=== PATIENT | female | born 1945 | race Caucasian/White ===

== ENCOUNTER 2017-05-16 18:21 | Inpatient (IN) | payer OTHER ==
[~2017-05-16] VITALS: Ht 160 cm; Wt 72.6 kg
[~2017-05-16 18:21] MED LIST: ARTIFICIAL TEAR15 M2 OPH; ATORVASTATIN CA10 MG PO; BUFFERIN LOW DO81 MG PO; DONEPEZIL HCL10 MG PO; OCUVITE1 TA1 PO; PRAVASTATIN SOD20 MG PO
--- NOTE | 2017-05-16 18:29 | ED AMS/SEIZURE/WEAK/DIZZY ---
History of Present Illness General Chief Complaint: General Adult Stated Complaint: BIBA UNRESPONSIVE, ?STROKE Source: family, old records, EMS Exam Limitations: no limitations Vital Signs & Intake/Output Vital Signs & Intake/Output Vital Signs Date Time Temp Pulse Resp B/P B/P Pulse O2 O2 Flow FiO2 Mean Ox Delivery Rate 05/16 2356 97.7 109 20 120/72 93 Room Air 05/16 2229 99.0 111 20 118/62 95 Room Air 05/16 2046 97.6 107 18 131/87 94 Room Air 05/16 1950 Room Air 05/16 1949 97.8 05/16 1830 140 20 122/84 91 Room Air ED Intake and Output 05/17 0000 05/16 1200 Intake Total Output Total 30 Balance -30 Number 1 Bowel Movements Output, Urine 30 Patient 160 lb Weight Weight Bed scale Measurement Method Allergies Coded Allergies: NO KNOWN ALLERGIES (11/12/11) Reconcile Medications A/C/E/Zinc/Sod Selenate/Copper (Prosight Tablet) (Unknown Strength) TABLET 1 TAB PO BID SUPPLEMENT (Reported) Acetaminophen (8 Hour) 650 MG TABLET.ER 1 TAB PO BID PAIN (Reported) Acetaminophen (Acephen) 650 MG SUPP.RECT 1 SUPP NC Q4H PRN PAIN/TEMP>101 ( Reported) Atropine Sulfate 1 % DROPS 2 DROP SL Q4H PRN RESP. CONGESTION (Reported) Bisacodyl (Dulcolax) 10 MG SUPP.RECT 1 SUP RC DAILY PRN CONSTIPATION ( Reported) Loratadine (Claritin) 10 MG TABLET 1 TAB PO DAILY ALLERGIES (Reported) Lorazepam (Lorazepam Intensol) 2 MG/ML ORAL.CONC 0.25 ML SL Q4H PRN RESTLESSNESS (Reported) Morphine Sulfate 100 MG/5 ML (20 MG/ML) SOLUTION 0.5 MG PO Q2H PRN SOB/ GRIMACING/PAIN (Reported) Na Phos,M-B/Na Phos,Di-Ba (Fleet Enema) 19 GRAM-7 GRAM/118 ML ENEMA 1 E RC DAILY PRN CONSTIPATION (Reported) Polyvinyl Alcohol (Artificial Tears) 1.4 % DROPS 1 DROP OU BID BOTH EYES ( Reported) Sodium Chloride (Saline Mist) 0.65 % SPRAY 1 SPRAY [place] DAILY PRN NOSE ( Reported) Tramadol HCl 50 MG TABLET 25 MG PO QAM PAIN (Reported) Tramadol HCl 50 MG TABLET 1 TAB PO Q6P PRN MODERATE PAIN (Reported) Triage Nurses Notes Reviewed? yes Onset: Abrupt Duration: minute(s): (few) Timing: single episode today Injury Environment: home Severity: severe No Modifying Factors: none Associated Symptoms: right facial droop HPI: 71 year old female with history of alzheimer's dementia and TIA presents to the ER via EMS from shelter for chief complaint of unresponsive episode in a wheelchair after being fed lunch. EMS states that nurses said she had a fixed gaze to the right and that her right hand and leg was stiff and shaking. Her daughter reports that refugio patient is non verbal at baseline and that she is unable to use her right side. She has a chronic small right facial droop. Past History Travel History Traveled to [place] past 21 day No Medical History Any Pertinent Medical History? see below for history Neurological: Alzheimer's disease, dementia Cardiovascular: hypertension Respiratory: ALLERGIES Gastrointestinal: CHOLESTERAL Other Medical Hx: SEASONAL ALLERGIES History of MRSA: No History of VRE: No History of CDIFF: No Pneumonia Vaccine: 09/02/15 Influenza Vaccine: 09/02/15 Surgical History Surgical History: hysterectomy Psychosocial History What is your primary language Citizen Of [place] Family History Hx Contributory? No Review of Systems Review of Systems Constitutional: Reports: see HPI (PER W10, PATIENT NONVERBAL). Physical Exam Physical Exam General Appearance: lethargic, moderate distress, severe distress Head: atraumatic Eyes: Bilateral: PERRL. Neck: normal inspection Respiratory: normal breath sounds, chest non-tender Cardiovascular: tachycardia Peripheral Pulses: 1+ radial (R), 1+ radial (L) Gastrointestinal: soft, non-tender Extremities: CONTRACTED RIGHT ARM/LEG STIFF/SPASTIC Neurologic/Psych: LETHARGIC Skin: intact, normal color Core Measures ACS in differential dx? No CVA/TIA Diagnosis: Yes NIH Stroke Scale: Total 9 Severe Sepsis Present: Yes BC x2: Yes Lactic Acid x2: Yes IV ABX Broad Spectrum: Yes NS/LR Started: Yes Septic Shock Present: No Progress Differential Diagnosis: CVA/stroke, intracranial Hem., intracranial mass/tumor, sepsis, seizure disorder, subarachnoid Hem., UTI/pyelo Plan of Care: Orders Procedure Date/time Status Nothing by Mouth 05/17 B Active Vital Signs 05/16 2242 Active Teach/Educate 05/16 2242 Active Pain Treatment and Response 05/16 2242 Active Nutritional Intake, Monitor 05/16 2242 Active Isolation 05/16 2242 Active Intake & Output 05/16 2242 Active Patient Care Conference 05/16 2242 Active Activity/Ambulation 05/16 2242 Active LACTIC ACID 05/16 2128 Complete Patient Data 05/16 2106 Active ED Holding Orders 05/16 2051 Active Admit to inpatient 05/16 2051 Active Vital Signs 05/16 2051 Active Code Status 05/16 2051 Active BLOOD CULTURE 05/16 2005 Active Intake & Output 05/16 1950 Active CULTURE,URINE 05/16 1926 Active URINALYSIS 05/16 1926 Complete NIH Stroke Scale 05/16 191 Active Straight Cath 05/16 1900 Active FingerStick- Glucose 05/16 1830 Active TROPONIN LEVEL 05/16 182 Complete PARTIAL THROMBOPLASTIN TIME 05/16 1828 Complete PROTHROMBIN TIME 05/16 1828 Complete LACTIC ACID 05/16 1828 Complete COMPREHENSIVE METABOLIC PANEL 05/16 182 Complete CBC WITHOUT DIFFERENTIAL 05/16 182 Complete EKG 05/16 182 Active TYPE & SCREEN (NOT X-MATCH) 05/16 182 Complete Current Medications Sig/Gilberto Start time Last Medication Dose Stop Time Status Admin Levetiracetam 750 MG BID 05/16 2200 CAN (Keppra) Sodium Chloride 100 ML (Normal Saline 0.9%) Laboratory Tests 05/16/170: Lactic Acid 1.3 05/16/171924: Urine Color YEL, Urine Clarity CLDY H, Urine pH 6.0, Ur Specific [place] >= 1.030, Urine Protein 100 H, Urine Ketones NEG, Urine Nitrite NEG, Urine Bilirubin NEG, Urine Urobilinogen 0.2, Ur Leukocyte Esterase LARGE H, Ur Microscopic SEDIMENT EXAMINED, Urine RBC 15-25 H, Urine WBC PACKD H, Ur Epithelial Cells FEW, Urine Bacteria MANY H, Urine Mucus RARE, Urine Hemoglobin MOD H, Urine Glucose NEG 05/16/171910: Anion Gap 16, Estimated GFR > 60, BUN/Creatinine Ratio 13.8, Glucose 128 H, Lactic Acid 4.3 H, Calcium 10.1, Total Bilirubin 0.4, AST 23, ALT 28, Alkaline Phosphatase 80, Troponin I < 0.01, Total Protein 7.4, Albumin 4.2, Globulin 3.2, Albumin/Globulin Ratio 1.3, PT 11.6, INR 1.11, APTT 29, CBC w Diff NO MAN DIFF REQ, RBC 4.54, MCV 92.1, MCH 30.1, RDW 13.5, MPV 8.6, Gran % 64.6, Lymphocytes % 25.7, Monocytes % 7.4, Eosinophils % 1.9, Basophils % 0.4, Absolute Granulocytes 7.5 H, Absolute Lymphocytes 3.0, Absolute Monocytes 0.9 H, Absolute Eosinophils 0.2, Absolute Basophils 0, PUBS MCHC 32.7 L Microbiology 05/16 2130 BLOOD: Blood Culture - RECD 05/16 2041 BLOOD: Blood Culture - RECD 05/16 1925 URINE ROUT: Urine Culture - RECD Diagnostic Imaging: Viewed by Me: CT Scan. Discussed w/RAD: CT Scan. Radiology Impression: PATIENT: JOSHUA BISWAS PRESENT AGE: 71 PATIENT ACCOUNT NO: [id number] : 47 LOCATION: [facility] ORDERING PHYSICIAN: LORENA BLACKWOOD MD SERVICE DATE: 05/16/17 EXAM TYPE: CAT - CT HEAD WO IV CONTRAST EXAMINATION: CT HEAD WITHOUT CONTRAST CLINICAL INFORMATION: Possible seizure. Right-sided arm and leg spasticity. COMPARISON: MRI scan of the brain and CT scan of the head 10/27/2015. TECHNIQUE: Contiguous axial imaging was performed from the skull base to vertex without intravenous administration of contrast. DLP: 689.8 mGy-cm FINDINGS: There is no evidence of acute intracranial hemorrhage or territorial infarction. No abnormal mass effect or midline shift is seen. Mcgovern to white matter differentiation is well preserved. No extra-axial fluid collections are identified. The ventricles and sulci are slightly commensurately prominent consistent with mild diffuse volume loss. This appears similar compared to the prior study. There are patchy areas of low attenuation in the periventricular and subcortical white matter, consistent with sequelae of chronic microvascular ischemic disease. The osseous structures and soft tissues are normal. The mastoid air cells and visualized portions of the paranasal sinuses are well aerated. IMPRESSION: 1. There are no acute bleeds or territorial infarcts. 2. There are changes consistent with mild diffuse volume loss and there are sequelae of chronic microvascular ischemic disease. A small infarct cannot be excluded on the basis of this study. DICTATED BY: REINALDO RAMIREZ MD DATE/TIME DICTATED:05/16/171856 PRODUCTION RECORDER:YO DATE/TIME TRANSCRIBED:05/16/17 / 1856 CONFIDENTIAL, DO NOT COPY WITHOUT APPROPRIATE AUTHORIZATION. <Electronically signed in Other Vendor System> SIGNED BY: REINALDO RAMIREZ MD 05/16/17 401 Initial ED EKG: SINUS TACHYCARDIA Rhythm Strip: sinus tachycardia Departure Departure Time of Disposition: 2008 Disposition: STILL A PATIENT Condition: Stable Clinical Impression Primary Impression: Seizure Referrals: Ebenezer ANDRES MD (PCP/Family) Departure Forms: Customer Survey General Discharge Information Admission Note Spoke With: RADHA SANDHU MD Documentation of Exam: Documentation of any treatments & extenuating circumstances including Concerns Regarding Discharge (functional status, medication knowledge or non-compliance, living conditions, etc.) that warrant an admission rather than observation: [ TELE MONITOR, SEIZURE PRECAUTIONS, IV KEPPRA, SWALLOW EVALUATION, NEURO CONSULT DR GE, EEG, CONSIDER MRI]
--- NOTE | 2017-05-16 18:32 | NUR ---
BIBA FROM SNF FOR MENTAL STATUS CHANGE; PT WAS RETURNING FROM DINNER, LEANED TO SIDE, BASELINE TREMORS INCREASED AND BECAME UNRESPONSIVE WITH GAZE DEVIATED TO RIGHT. HX DEMENTIA, NONVERBAL BASELINE, DNR/DNI
--- NOTE | 2017-05-16 18:33 | NUR ---
PT SEEN BY DR BLACKWOOD ON ARRIVAL, TO CT WITH RN/MD IMMEDIATLY AFTER INITIAL EVAL.
--- NOTE | 2017-05-16 18:35 | NUR ---
PT PUT ON MONITOR. SINUS TACH 125.
--- NOTE | 2017-05-16 19:05 | CT SCAN REPORT ---
EXAMINATION: CT HEAD WITHOUT CONTRAST CLINICAL INFORMATION: Possible seizure. Right-sided arm and leg spasticity. COMPARISON: MRI scan of the brain and CT scan of the head 10/27/2015. TECHNIQUE: Contiguous axial imaging was performed from the skull base to vertex without intravenous administration of contrast. DLP: 689.8 mGy-cm FINDINGS: There is no evidence of acute intracranial hemorrhage or territorial infarction. No abnormal mass effect or midline shift is seen. Mcgovern to white matter differentiation is well preserved. No extra-axial fluid collections are identified. The ventricles and sulci are slightly commensurately prominent consistent with mild diffuse volume loss. This appears similar compared to the prior study. There are patchy areas of low attenuation in the periventricular and subcortical white matter, consistent with sequelae of chronic microvascular ischemic disease. The osseous structures and soft tissues are normal. The mastoid air cells and visualized portions of the paranasal sinuses are well aerated. IMPRESSION: 1. There are no acute bleeds or territorial infarcts. 2. There are changes consistent with mild diffuse volume loss and there are sequelae of chronic microvascular ischemic disease. A small infarct cannot be excluded on the basis of this study.
--- NOTE | 2017-05-16 19:15 | NUR ---
AFTER CT SCAN EKG DONE, AND LABS DRAWN. SECOND IV STARTED IN RIGHT WRIST.
[2017-05-16 19:34] LABS: ABSOLUTE BASOPHIL COUNT 0 /CUMM (0.0-0.2); ABSOLUTE EOSINOPHIL COUNT 0.2 /CUMM (0.0-0.7); ABSOLUTE GRANULOCYTE CT 7.5 /CUMM (1.4-6.5); ABSOLUTE MONOCYTE COUNT 0.9 /CUMM (0.10-0.60); BASOPHIL % 0.4 % (0.0-2.0); EOSINOPHIL % 1.9 % (0-5); GRANULOCYTE % 64.6 % (42.2-75.2); HEMATOCRIT 41.9 % (37-47); MEAN CORPUSCULAR HGB 30.1 PG (27.0-31.0); MEAN CORPUSCULAR HGB CONC 32.7 G/DL (33.0-37.0); MEAN CORPUSCULAR VOLUME 92.1 FL (81.0-99.0); MEAN PLATELET VOLUME 8.6 FL (7.4-10.4); PLATELET COUNT 372 /CUMM (130-400); RBC DISTRIBUTION WIDTH 13.5 % (11.5-14.5); RED BLOOD CELL CT 4.54 /CUMM (4.20-5.40); WHITE BLOOD CELL COUNT 11.7 /CUMM (4.8-10.8)
[2017-05-16 19:42] LABS: PT 11.6 SEC (9.4-12.5); PTT 29 SEC (25-37)
--- NOTE | 2017-05-16 19:43 | NUR ---
PT STRAIGHT CATHED FOR URINE SPECIMEN. URINE CLOUDY.
--- NOTE | 2017-05-16 19:48 | NUR ---
DTR AT BEDSIDE. REPORTS PT BASELINE STATUS IS TOTAL CARE. UNABLE TO STAND. INCONTINENT OF BOWEL AND BLADDER. NON VERBAL. HISTORY OF ALZHEIMERS.
--- NOTE | 2017-05-16 19:49 | NUR ---
SKIN INACT EXCEPT FOR FOR RASH IN PERINEAL AREA.
--- NOTE | 2017-05-16 20:04 | NUR ---
DR BLACKWOOD IN TO GIVEN UPDATE TO DTR. PT BEING ADMITTED FOR SEIZURES VS CVA WITH INCIDENTAL UTI FINDING. WILL ASSESS PT ABLILITY TO SWALLOW MEDS. TO START KEPPRA FOR POSSIBLE SEIZURES.
--- NOTE | 2017-05-16 20:05 | RADIOLOGY REPORT ---
EXAMINATION: XR PORTABLE CHEST CLINICAL INFORMATION: Seizure, evaluate for pneumonia. COMPARISON: 10/28/2015. TECHNIQUE: Portable frontal view of the chest was obtained. FINDINGS: The cardiomediastinal silhouette is unremarkable. Lung volumes are diminished. The lungs and pleural spaces appear clear without evidence of congestion, consolidation, or significant appearing effusion or atelectasis. There is no evidence of pneumothorax or pulmonary edema. Included osseous structures demonstrate a suture stay in the right humeral head suggesting previous rotator cuff repair. IMPRESSION: Low lung volumes, no evidence of an acute intrathoracic process.
--- NOTE | 2017-05-16 20:16 | NUR ---
CRITICAL TEST RESULTS [id number] JOSHUA BISWAS 71 F TESTS AND RESULTS: LACTIC ACID 4.3 Results received and read back by: DAMARIS WINCHESTER Results received date and time: 05/16/172016 The following provider was notified of the results, and read the results back: DR BLACKWOOD Notified date and time: 05/16/17 at 2017
--- NOTE | 2017-05-16 20:16 | NUR ---
DR BLACKWOOD IN TO EVAL SWALLOW. PT LETHARGIC. EYES CLOSED. PT BITING DOWN ON STRAW BUT MAKING NO ATTEMPT TO DRINK. PT TO BE NPO.
[2017-05-16] MEDS ORDERED: ARTIFICIAL TEAR15 M8 OU (20:40)
[2017-05-16] MEDS ORDERED: CLARITIN10 M1 PO (20:40)
[2017-05-16] MEDS ORDERED: 8 HOUR650 MG PO (20:41)
[2017-05-16] MEDS ORDERED: PROSIGHT TABLE1 EACH PO (20:41)
[2017-05-16] MEDS ORDERED: TRAMADOL HCL50 M1 PO ×2 (20:43→20:56)
[2017-05-16] MEDS ORDERED: ACEPHEN650 M1 PR (20:45)
[2017-05-16] MEDS ORDERED: ATROPINE SULFATE2 ML SL (20:49)
[2017-05-16] MEDS ORDERED: DULCOLAX10 M1 RC (20:52)
[2017-05-16] MEDS ORDERED: FLEET ENEMA133 ML RC (20:53)
[2017-05-16] MEDS ORDERED: LORAZEPAM I2 MG/1 ML SL (20:54)
[2017-05-16] MEDS ORDERED: MORPHINE S100 MG/5 M PO (20:55)
[2017-05-16] MEDS ORDERED: SALINE MIST44 ML NAS (20:56)
--- NOTE | 2017-05-16 22:28 | NUR ---
DR RAMIREZ IN TO SEE PT. PT LOGROLLED, RECTAL TEMP CHECKED AND ASA SUPPOSITORY GIVEN. PT REMAINS LETHRGIC, EYES CLOSED. EXTREMITITES TENSE AND PT RESISTING CARE. PT ACTIVELY MOVING LEFT ARM AND LEG. MINIMAL MOVEMENT NOTED OF RIGHT ARM
--- NOTE | 2017-05-16 22:29 | NUR ---
PT TO ROOM 220 BED 1
--- NOTE | 2017-05-16 22:41 | NUR ---
REPORT CALLED TO JUAN RASMUSSEN
--- NOTE | 2017-05-16 23:32 | History & Physical ---
ELDA RANDOLPHCHAPIS 05/16/17 2372: General Information and HPI MD Statement: I have seen and personally examined JOSHUA BISWAS and documented this H&P. The patient is a 71 year old F who presented with a patient stated chief complaint of altered mental status, and Source of Information: W10, nursing staff at skilled nursing Exam Limitations: unable to give history, not alert/orientated History of Present Illness: Ms Biswas is a 71 yr old woman who was known to be in her usual state of health until a few hours prior to the ED admission. She has a past medical history of Alzheimer's dementia (nonverbal at baseline), hypertension, recent CVA (residual left-sided weakness). She lives at [facility], a skilled nursing where she is being taken care of. She was brought to [facility] with a chief concern of ordered mental status, abnormal movement of her upper extremities x few hours ago. As per the nursing staff at the nursing facility, Ms. Paulson was having her dinner at a common lounge room, when she suddenly stopped swallowing food, and had abnormal extremity movements. She was also noted to have abnormal breathing , shallow breathing. After she was taken to her room, she position herself to be leaned on right side. Since the patient was incontinent at baseline, the nursing staff could not ascertain if she lost her bladder control. Other ROS was difficult to assess. As per the CODE STATUS, she was comfort measures only at skilled nursing. The family wanted to continue to treat her only conservatively. Allergies/Medications Allergies: Coded Allergies: NO KNOWN ALLERGIES (11/12/11) Home Med list A/C/E/Zinc/Sod Selenate/Copper (Prosight Tablet) (Unknown Strength) TABLET 1 TAB PO BID SUPPLEMENT (Reported) Acetaminophen (8 Hour) 650 MG TABLET.ER 1 TAB PO BID PAIN (Reported) Acetaminophen (Acephen) 650 MG SUPP.RECT 1 SUPP MA Q4H PRN PAIN/TEMP>101 ( Reported) Atropine Sulfate 1 % DROPS 2 DROP SL Q4H PRN RESP. CONGESTION (Reported) Bisacodyl (Dulcolax) 10 MG SUPP.RECT 1 SUP RC DAILY PRN CONSTIPATION ( Reported) Loratadine (Claritin) 10 MG TABLET 1 TAB PO DAILY ALLERGIES (Reported) Lorazepam (Lorazepam Intensol) 2 MG/ML ORAL.CONC 0.25 ML SL Q4H PRN RESTLESSNESS (Reported) Morphine Sulfate 100 MG/5 ML (20 MG/ML) SOLUTION 0.5 MG PO Q2H PRN SOB/ GRIMACING/PAIN (Reported) Na Phos,M-B/Na Phos,Di-Ba (Fleet Enema) 19 GRAM-7 GRAM/118 ML ENEMA 1 E RC DAILY PRN CONSTIPATION (Reported) Polyvinyl Alcohol (Artificial Tears) 1.4 % DROPS 1 DROP OU BID BOTH EYES ( Reported) Sodium Chloride (Saline Mist) 0.65 % SPRAY 1 SPRAY AZALEA DAILY PRN NOSE ( Reported) Tramadol HCl 50 MG TABLET 25 MG PO QAM PAIN (Reported) Tramadol HCl 50 MG TABLET 1 TAB PO Q6P PRN MODERATE PAIN (Reported) Compliance With Home Meds: GOOD Past History Travel History Traveled to [place] past 21 day No Medical History Neurological: Alzheimer's disease, dementia, TIA Cardiovascular: hypertension, HLD Respiratory: ALLERGIES Gastrointestinal: CHOLESTERAL Musculoskeletal: OSTEOARTHRITIS Other Medical Hx: SEASONAL ALLERGIES History of MRSA: No History of VRE: No History of CDIFF: No Pneumonia Vaccine: 09/02/15 Influenza Vaccine: 09/02/15 Surgical History Surgical History: hysterectomy Past Family/Social History Family History Relations & Conditions if any Relation not specified for: *No pertinent family history Functional Ability ADLs Independent: eating, toileting. Ambulation: non-ambulatory Review of Systems Review of Systems Constitutional: Reports: see HPI. Denies: chills, fever. Cardiovascular: Denies: chest pain. Respiratory: Denies: cough, short of breath. GI: Denies: diarrhea, vomiting. Skin: Denies: change in skin color. Exam & Diagnostic Data Last 24 Hrs of Vital Signs/I&O Vital Signs Date Time Temp Pulse Resp B/P B/P Pulse O2 O2 Flow FiO2 Mean Ox Delivery Rate 05/16 2356 97.7 109 20 120/72 93 Room Air 05/169 99.0 111 20 118/62 95 Room Air 05/16 2046 97.6 107 18 131/87 94 Room Air 05/16 1950 Room Air 05/16 194 97.8 05/16 1830 140 20 122/84 91 Room Air Intake & Output 05/17 0800 05/17 0000 05/16 1600 Intake Total Output Total 30 Balance -30 Number 1 Bowel Movements Output, Urine 30 Patient 160 lb Weight Weight Bed scale Measurement Method Physical Exam General Appearance No Acute Distress Skin No Rashes Skin Temp/Moisture Exam: Warm/Dry Sepsis Skin Exam (color): Normal for Ethnicity HEENT dry mucous membranes Neck Supple, No JVD Lymphatic Cervical nl Cardiovascular Regular Rate, Normal S1, Normal S2, tachycardia Lungs Clear to Auscultation Abdomen Normal Bowel Sounds, Soft Neurological Reflexes 2+, increased tone bilaterally, strength couldnt be checked Extremities No Clubbing, No Cyanosis, No Edema, Normal Pulses Vascular Pulses Symmetrical Last 24 Hrs of Labs/Chad: Laboratory Tests 05/16/172129: Lactic Acid 1.3 05/16/171924: Urine Color YEL, Urine Clarity CLDY H, Urine pH 6.0, Ur Specific [place] >= 1.030, Urine Protein 100 H, Urine Ketones NEG, Urine Nitrite NEG, Urine Bilirubin NEG, Urine Urobilinogen 0.2, Ur Leukocyte Esterase LARGE H, Ur Microscopic SEDIMENT EXAMINED, Urine RBC 15-25 H, Urine WBC PACKD H, Ur Epithelial Cells FEW, Urine Bacteria MANY H, Urine Mucus RARE, Urine Hemoglobin MOD H, Urine Glucose NEG 05/16/171910: Anion Gap 16, Estimated GFR > 60, BUN/Creatinine Ratio 13.8, Glucose 128 H, Lactic Acid 4.3 H, Calcium 10.1, Total Bilirubin 0.4, AST 23, ALT 28, Alkaline Phosphatase 80, Troponin I < 0.01, Total Protein 7.4, Albumin 4.2, Globulin 3.2, Albumin/Globulin Ratio 1.3, PT 11.6, INR 1.11, APTT 29, CBC w Diff NO MAN DIFF REQ, RBC 4.54, MCV 92.1, MCH 30.1, RDW 13.5, MPV 8.6, Gran % 64.6, Lymphocytes % 25.7, Monocytes % 7.4, Eosinophils % 1.9, Basophils % 0.4, Absolute Granulocytes 7.5 H, Absolute Lymphocytes 3.0, Absolute Monocytes 0.9 H, Absolute Eosinophils 0.2, Absolute Basophils 0, PUBS MCHC 32.7 L Microbiology 05/16 2130 BLOOD: Blood Culture - RECD 05/16 2041 BLOOD: Blood Culture - RECD 05/16 1925 URINE ROUT: Urine Culture - RECD Diagnostic Data EKG Results Tachycardia. NSR CXR Results Low lung volumes, no evidence of an acute intrathoracic process. Other Results CAT - CT HEAD WO IV CONTRAST 1. There are no acute bleeds or territorial infarcts. 2. There are changes consistent with mild diffuse volume loss and there are sequelae of chronic microvascular ischemic disease. A small infarct cannot be excluded on the basis of this study. Assessment/Plan Assessment: She is an older lady with a past history of ? CVA/multiple TIAs in the past ( with residual left-sided weakness) Alzheimer's dementia who is nonverbal at baseline is being evaluated for abnormal upper extremity movements, likely seizure. At the time of admission, vitals-temperature 97.6, pulse rate 107, respiration 18, blood pressure 131/87, pulse ox 94% on room air. Lab findings indicated WBC 11.7, hemoglobin 13.7, platelets 372, electrolytes-sodium 142, potassium 4.1, bicarbonate 23, renal function-BUN 11, serum creatinine 0.8, lactic acid 4.3--> 1.3, hepatic panel-AST 23, ALT 28, alkaline phosphatase 80, cardiac enzymes- troponin within normal limits. Urinalysis revealed increased protein, with leukocyte esterase positive, pyuria. CT head revealed-no acute bleeds or territorial infarcts. There are changes consistent with mild diffuse volume loss and sequelae of chronic microvascular ischemic disease. There could be a small infarct could not be ruled out as per the radiologist. Chest x-ray did not reveal any acute intrathoracic process, however revealed low lung volumes. Differential diagnosis: #1 seizures #2 rule out CVA #3 TIA Below is the problem list and plan: #1 Altered mental status-likely due to worsening dementia, multiple TIAs, or decreased by mouth intake. She was made comfort measures only in the past, and the family does not intend to have any further aggressive workup or management. Seizures is in the differential, and was started on Keppra. She was given aspirin in the ED, and no further statin therapy was given. #2 comfort measures-patient to be given intravenous morphine as needed. Discuss in the a.m., with the family about the goals of care. Currently nothing by mouth. If the clinical condition worsens, plan to discuss with the family. #3 DVT prophylaxis-none. As Ranked By This Provider Problem List: 1. Seizure 2. CVA (cerebral vascular accident) 3. Altered mental state Core Measures/Miscellaneous Acute Coronary Syndrome ACS Diagnosis: No Cerebrovascular Accident CVA/TIA Diagnosis: Yes Date Last Known Well: 05/17/17 Time Last Known Well: 1800 Neurological S/S of CVA: Acute Confusion, Incoherent Speech Symptom Start Date: 05/17/17 Bedside Swallow Eval Done: No (pt unable to follow commands) Antithrombotic: No AFIB: No Anticoagulant: No LDL Assessed Within 24 Hours: No Currently on Statin: No (comfort measures in nursing ho) Rehab Needs Assessed: No PT Consult Ordered: No (comfort measures) Congestive Heart Failure CHF Diagnosis: No VTE (View Protocol) VTE Risk Factors: Age > 40 No [facility] VTE prophylaxis d/t: No contraindications No VTE Pharm Prophylaxis d/t: No contraindications VTE Diagnosis: No VTE Type: NONE VTE Confirmed by (Test): NONE Sepsis (View Protocol) Severe Sepsis Present: No Septic Shock Septic Shock Present: No Miscellaneous Documentation Attending Case Discussed With: RADHA SANDHU MD Primary Care Physician: Ebenezer ANDRES MD Patient sees these Specialists unknown Level of Patient Care: General Medicine JUAN JOSEBINA 05/17/17 0106: Resident Review Statement Resident Statement: examined this patient, discussed with family, discussed with nursing Other Findings: Patient is 71 year old female, with PMH of Alzheimer's dementia, hyperlipidemia, osteoarthritis and previously [employer]MENT[employer] PROFESSION[employer] at [facility] home was brought into ER after patient had one episode of seizure around 5.50pm pn 05/16/17 at the skilled nursing. Per [facility] staff, patient was in her usual state of health when they got a call that patient's upper and lower extremeties are twitching and jerking. The episode lasted 2 1/2 minutes and was followed by unresponsiveness by the patient. Of note, patient had urinary incontinence during the episode and her body was flaccid afterwards. Patient was also noticed to be wheezing and had trouble breathing. At baseline, patient is non communicative and utters only short, small sentenses and words. She has been eating and drinking proparly at the rehab. I called patients SHWETHA, her Daughter Bianca at [phone] to confirm code status. Patient is comfort measures with no aggressive interventions including blood draw and unnecessary imaging. AT this point, will continue her on morphine, ativan and keppra for seizures. RADHA SANDHU 05/17/17 0507: Attending MD Review Statement Attending Statement Attending MD Statement: examined this patient, discuss w/resident/PA/CONTROL PANEL OPERATOR CRUDE UNIT, agreed w/resident/PA/CONTROL PANEL OPERATOR CRUDE UNIT, discussed with family, reviewed EMR data (avail), reviewed images, amended to note Attending Assessment/Plan: CC: AMS H dementia, nonverbal at baseline, HLD, CVA Patient was sent from [facility] for sudden change in mental status. After finishing her food patient had an episode of tremors, seizure like activity, followed by decreased level of sensorium. She was also found to have abnormal breathing and swallowing, her eyes were rolled and she was leaning towards right side had bladder incontinence episode. Of note patient had stroke 2 months back at skilled nursing, with possible limping of the right side, at that time patient was not hospitalized. She continues to have residual weakness on the right side. History is obtain from skilled nursing and family who confirms that patient continues to be comfort measures only. Neurology was consulted from ER who suggested to start Keppra. Vitals: Afebrile, tachycardic, RR 20, blood pressure 122/84, saturating well on room air. On exam: Patient does not respond, withdraws to pain, market stiffness on right upper extremity and lower extremity, spontaneously moves left upper extremity and lower extremity, CVS: S1-S2 RRR. RS: Clear to auscultate. Abdomen: Soft, NT, bowel sounds present, no obvious edema, no JVD, mucosa dry. Labs: CBC, BMP, LFT unremarkable, lactate 4.3, UA positive for large leukocyte esterase, packed WBC, many bacteria moderate hemoglobin. CXR: Low lung volumes, no evidence of an acute intrathoracic process. CT head: 1. There are no acute bleeds or territorial infarcts. 2. There are changes consistent with mild diffuse volume loss and there are sequelae of chronic microvascular ischemic disease. A small infarct cannot be excluded on the basis of this study. A and P 71-year-old female with past medical history significant for dementia, nonverbal was brought in ER from rehabilitation for what appears to be seizure episode, patient had seizure-like activity, confusion after the episode, bladder incontinence, elevated lactate. Given her baseline dementia patient is difficult to examine neurologically, has stiffness of right upper and lower extremity, spontaneously moves left upper and lower extremity, no obvious cranial nerves deficits. According to the history patient had stroke 2 months back at the skilled nursing for which she was not hospitalized, may have residual weakness on right side at that time. According to family and skilled nursing patient is comfort measures only but given that new episode of seizure we will continue to treat her seizure symptomatically. She is found to have UTI which would be treated in this current situation of changed sensorium. + New-onset Seizure + UTI + History of CVA, dementia - Admit to general medicine - Seizure precautions - Nothing by mouth - Continue IV Keppra - Swallow eval - Change to by mouth Keppra according to diet consistency - IV ceftriaxone for UTI - Gentle hydration - DC tramadol - Continue rest of her home medications - Mouth care, respiratory care
[2017-05-16 23:56] VITALS: BP 120/72
[2017-05-16 23:57] VITALS: BP 120/72
--- NOTE | 2017-05-17 05:08 | Admission Certification ---
Admission Certification Certification Statement - As attending physician, I certify that at the time of - admission, based on clinical presentation, severity of - symptoms, need for further diagnostic testing and - therapeutic interventions, and risk of adverse outcomes - without in-hospital treatment, in my clinical assessment, - this patient requires an acute hospital stay for a minimum - of two nights or longer. I have also considered psychsocial - factors such as support system, advanced age, financial - issues, cognitive issues, and failed out-patient treatments, - past re-admission history, safety of patient, and lack of - compliance as applicable. Specific rationale supporting this admission is: New onset seizures
[2017-05-17 06:00] VITALS: BP 120/70
--- NOTE | 2017-05-17 07:32 | PN- Housestaff ---
FELICITY KING 05/17/17 0731: Subjective Follow-up For: altered Mental status seizures Urinary tract infection Complaints: pt unable to provide hx Subjective: Patient was seen and examined this morning. She was sleeping, not oriented to time place and person. History of alzeihmers dementia and nonverbal at baseline. family at bedside No further episodes of seizures Vitals afebrile, heart rate 70, respiratory rate 20, blood pressure 120/70, saturating at 92 on room air Review of Systems Constitutional: Reports: see HPI. Objective Last 24 Hrs of Vital Signs/I&O Vital Signs Date Time Temp Pulse Resp B/P B/P Pulse O2 O2 Flow FiO2 Mean Ox Delivery Rate 05/17 0600 97.7 101 20 120/70 92 Room Air 05/17 0000 93 Room Air 05/16 2357 97.7 109 20 120/72 93 Room Air 05/16 2356 97.7 109 20 120/72 93 Room Air 05/16 2229 99.0 111 20 118/62 95 Room Air 05/16 2046 97.6 107 18 131/87 94 Room Air 05/16 1950 Room Air 05/16 1949 97.8 05/16 1830 140 20 122/84 91 Room Air Intake & Output 05/17 1600 05/17 0800 05/17 0000 Intake Total 0 0 Output Total 30 Balance 0 -30 Intake, IV 0 0 Intake, Oral 0 0 Number 0 1 Bowel Movements Output, Urine 30 Patient 72.575 kg Weight Weight Bed scale Measurement Method Physical Exam General Appearance: lethargic, not ox3 Skin: No Rashes, No Breakdown HEENT: Atraumatic Neck: Supple, No JVD Lymphatic: Cervical nl Cardiovascular: Normal S1, Normal S2 Lungs: Normal Air Movement Abdomen: Normal Bowel Sounds, Soft, No Tenderness Extremities: No Clubbing, No Cyanosis, No Edema Vascular: Pulses Symmetrical Current Medications: Current Medications Sig/Gilberto Start time Last Medication Dose Route Stop Time Status Admin Aspirin 300 MG ONCE ONE 05/16 2015 DC 05/16 [place] 05/16 Ceftriaxone Sodium 1,000 MG DAILY 05/17 1000 AC 05/17 IV 0855 Ceftriaxone Sodium 0 .STK-MED ONE 05/16 2241 DC .ROUTE Ceftriaxone Sodium 1,000 MG ONCE ONE 05/16 2015 DC 05/16 IV 05/16 2016 224 Glycerin/Mineral Oil 1 ROULA Q8P PRN 05/17 0130 AC TOP Levetiracetam 500 MG Q12 05/17 1000 AC 05/17 N/A 1 UNIT IV 0855 Levetiracetam 750 MG BID 05/16 2200 CAN Sodium Chloride 100 ML IV Levetiracetam 500 MG ONCE ONE 05/16 2030 DC 05/16 N/A 1 UNIT IV 05/16 2044 2212 Lorazepam 2 MG ONCE ONE 05/17 0845 DC 05/17 IV 05/17 0846 0843 Lorazepam 1 MG Q4P PRN 05/17 0845 AC IV Lorazepam 1 MG Q4 PRN 05/17 0130 DC PO Morphine Sulfate 2 MG Q2P PRN 05/17 0130 AC IV Scopolamine HBr 1 PAT Q72 05/17 1000 CAN TOP Scopolamine HBr 1 PAT Q72H 05/17 0900 AC 05/17 TOP 0855 Sodium Chloride 1,000 ML Q20H 05/17 0530 AC 05/17 IV 0600 Sodium Chloride 500 ML BOLUS ONE 05/16 1930 DC 05/16 IV 05/16 Last 24 Hrs of Lab/Chad Results Last 24 Hrs of Labs/Mics: Laboratory Tests 05/16/170: Lactic Acid 1.3 05/16/171924: Urine Color YEL, Urine Clarity CLDY H, Urine pH 6.0, Ur Specific [place] >= 1.030, Urine Protein 100 H, Urine Ketones NEG, Urine Nitrite NEG, Urine Bilirubin NEG, Urine Urobilinogen 0.2, Ur Leukocyte Esterase LARGE H, Ur Microscopic SEDIMENT EXAMINED, Urine RBC 15-25 H, Urine WBC PACKD H, Ur Epithelial Cells FEW, Urine Bacteria MANY H, Urine Mucus RARE, Urine Hemoglobin MOD H, Urine Glucose NEG 05/16/171910: Anion Gap 16, Estimated GFR > 60, BUN/Creatinine Ratio 13.8, Glucose 128 H, Lactic Acid 4.3 H, Calcium 10.1, Total Bilirubin 0.4, AST 23, ALT 28, Alkaline Phosphatase 80, Troponin I < 0.01, Total Protein 7.4, Albumin 4.2, Globulin 3.2, Albumin/Globulin Ratio 1.3, PT 11.6, INR 1.11, APTT 29, CBC w Diff NO MAN DIFF REQ, RBC 4.54, MCV 92.1, MCH 30.1, RDW 13.5, MPV 8.6, Gran % 64.6, Lymphocytes % 25.7, Monocytes % 7.4, Eosinophils % 1.9, Basophils % 0.4, Absolute Granulocytes 7.5 H, Absolute Lymphocytes 3.0, Absolute Monocytes 0.9 H, Absolute Eosinophils 0.2, Absolute Basophils 0, PUBS MCHC 32.7 L Microbiology 05/16 2130 BLOOD: Blood Culture - RECD 05/16 2041 BLOOD: Blood Culture - RECD 05/16 1925 URINE ROUT: Urine Culture - RECD Assessment/Plan Assessment: She is an older lady with a past history of CVA/multiple TIAs in the past (with residual left-sided weakness) Alzheimer's dementia who is nonverbal at baseline, hypertension is being evaluated for abnormal upper extremity movements, likely seizure. At the time of admission, vitals-temperature 97.6, pulse rate 107, respiration 18, blood pressure 131/87, pulse ox 94% on room air. Lab findings indicated WBC 11.7, hemoglobin 13.7, platelets 372, electrolytes- sodium 142, potassium 4.1, bicarbonate 23, renal function-BUN 11, serum creatinine 0.8, lactic acid 4.3--> 1.3, hepatic panel-AST 23, ALT 28, alkaline phosphatase 80, cardiac enzymes-troponin within normal limits. Urinalysis revealed increased protein, with leukocyte esterase positive, pyuria. CT head revealed-no acute bleeds or territorial infarcts. There are changes consistent with mild diffuse volume loss and sequelae of chronic microvascular ischemic disease. There could be a small infarct could not be ruled out as per the radiologist. Chest x-ray did not reveal any acute intrathoracic process, however revealed low lung volumes. New onset seizures 71-year-old female with past medical history significant for Alzheimer's dementia, nonverbal at baseline, recent CVA and left-sided weakness, hypertension was sent from [facility] for sudden change in mental status. Patient had seizure-like activity, confusion after the episode, urine incontinence. Difficult patient to examine, stiffness of extremities, residual left-sided weakness. Off note history of stroke 2 months ago at [facility] for which she never hospitalized. CT scan revealed no acute infarcts or bleeds. * She is comfort care at [facility] * Admitted to general medicine floor for further management and care. * monitor vitals closely every shift * Neurology was consulted from the emergency room, recommended starting IV Keppra * She was started on IV Keppra for her seizures overnight after admission * Continue IV Keppra for now * Seizure precautions * Will provide gentle hydration * Respiratory care Comfort care She obtained from the [facility] and family who confirms that patient continues to be comfort measures only * Continue comfort measure care * Continue IV Ativan * Continue IV morphine * Scopolamine patch * Family meeting later part of the day regarding hospice * Continue hydration for now Urinary tract infection Patient is nonverbal at baseline. However urine analysis showed large leukocyte esterases, WBC, RBC, many bacteria. Urine cultures were sent. * Patient was started on IV ceftriaxone * We continue IV antibiotics for now * Pending family meeting Problem List: 1. Altered mental state 2. Seizure Pain Ratin Pain Location: n/a Pain Goal: Remain pain free Pain Plan: morphine Tomorrow's Labs & Rationales: none RHIANNON MALLOY MD 05/17/17 2226: Attending MD Review Statement Attending Statement Attending MD Statement: examined this patient, discuss w/resident/PA/TERMITE RENEWAL INSPECTOR, agreed w/resident/PA/TERMITE RENEWAL INSPECTOR, discussed with family, reviewed EMR data (avail), discussed with nursing, discussed with case mgmt, amended to note Attending Assessment/Plan: The patient was seen and discussed with house staff. Agree with the plan of care as outlined.
--- NOTE | 2017-05-17 14:03 | Cons- Neurology ---
General Information and HPI Consulting Request Date of Consult: 05/17/17 Requested By: RHIANNON MALLOY MD Reason for Consult: mental status change Source of Information: old records Exam Limitations: dementia History of Present Illness: 71 year old female with history of Alzheimer disease, nonverbal, resident of [facility] brought in with change of mental status and abnormal movements of upper extremities Symptoms seem to occur relatively suddenly while she was eating There was no history of head trauma. Patient could not offer any complaints prior to the event In hospital she has remained hypersomnolent Movements of upper extremities were noted requiring Ativan. Allergies/Medications Allergies: Coded Allergies: NO KNOWN ALLERGIES (11/12/11) Home Med List: A/C/E/Zinc/Sod Selenate/Copper (Prosight Tablet) (Unknown Strength) TABLET 1 TAB PO BID SUPPLEMENT (Reported) Acetaminophen (8 Hour) 650 MG TABLET.ER 1 TAB PO BID PAIN (Reported) Acetaminophen (Acephen) 650 MG SUPP.RECT 1 SUPP WA Q4H PRN PAIN/TEMP>101 ( Reported) Atropine Sulfate 1 % DROPS 2 DROP SL Q4H PRN RESP. CONGESTION (Reported) Bisacodyl (Dulcolax) 10 MG SUPP.RECT 1 SUP RC DAILY PRN CONSTIPATION ( Reported) Loratadine (Claritin) 10 MG TABLET 1 TAB PO DAILY ALLERGIES (Reported) Lorazepam (Lorazepam Intensol) 2 MG/ML ORAL.CONC 0.25 ML SL Q4H PRN RESTLESSNESS (Reported) Morphine Sulfate 100 MG/5 ML (20 MG/ML) SOLUTION 0.5 MG PO Q2H PRN SOB/ GRIMACING/PAIN (Reported) Na Phos,M-B/Na Phos,Di-Ba (Fleet Enema) 19 GRAM-7 GRAM/118 ML ENEMA 1 E RC DAILY PRN CONSTIPATION (Reported) Polyvinyl Alcohol (Artificial Tears) 1.4 % DROPS 1 DROP OU BID BOTH EYES ( Reported) Sodium Chloride (Saline Mist) 0.65 % SPRAY 1 SPRAY AZALEA DAILY PRN NOSE ( Reported) Tramadol HCl 50 MG TABLET 25 MG PO QAM PAIN (Reported) Tramadol HCl 50 MG TABLET 1 TAB PO Q6P PRN MODERATE PAIN (Reported) Review of Systems Review of Systems: Unable to obtain from patient There was no history of fever, vomiting, head trauma. She had been eating previously. No history of recent falls Other systems are not obtainable Past History Travel History Traveled to [place] past 21 day No Medical History Neurological: Alzheimer's disease, dementia, TIA Cardiovascular: hypertension, HLD Respiratory: ALLERGIES Gastrointestinal: CHOLESTERAL Musculoskeletal: OSTEOARTHRITIS Other Medical Hx: SEASONAL ALLERGIES Surgical History Surgical History: hysterectomy Family History Relations & Conditions If Any: Relation not specified for: *No pertinent family history Psychosocial History Where Do You Live? [facility] Smoking Status: Never Smoked Functional Ability ADLs Independent: eating, toileting. Ambulation: non-ambulatory Exam & Diagnostic Data Vital Signs and I&O Vital Signs Date Time Temp Pulse Resp B/P B/P Pulse O2 O2 Flow FiO2 Mean Ox Delivery Rate 05/17 0600 97.7 101 20 120/70 92 Room Air 05/17 0000 93 Room Air 05/16 2357 97.7 109 20 120/72 93 Room Air 05/16 2356 97.7 109 20 120/72 93 Room Air 05/16 2229 99.0 111 20 118/62 95 Room Air 05/16 2046 97.6 107 18 131/87 94 Room Air 05/16 1950 Room Air 05/16 1949 97.8 05/16 1830 140 20 122/84 91 Room Air Intake & Output 05/17 1600 05/17 0800 05/17 0000 Intake Total 0 0 Output Total 30 Balance 0 -30 Intake, IV 0 0 Intake, Oral 0 0 Number 0 1 Bowel Movements Output, Urine 30 Patient 160 lb Weight Weight Bed scale Measurement Method Physical Exam: Obtunded and unable to arouse Patient had been given Ativan earlier today No convulsive activity noted Heart sounds normal, no carotid bruit distal pulses intact Pupil small and reactive, extraocular movements full, fundi not adequately visualized, visual avelar cannot be assessed, no obvious facial weakness, palate and tongue appear midline, hearing cannot be assessed Increase in tone in upper and lower extremities, not moving extremities voluntarily, withdraws to noxious stimuli Sensory examination withdraws extremities to noxious stimuli Deep tendon reflexes 1+ bilateral plantar response upgoing bilaterally Coordinative functions cannot be assessed Patient does not walk Last 48 Hours of Lab Results: Laboratory Tests 05/16 Chemistry Lactic Acid (0.7 - 2.1 mmol/L) 1.3 Urines Urine Color (YEL,AMB,STR) YEL Urine Clarity (CLEAR) CLDY H Urine pH (5.0 - 8.0) 6.0 Ur Specific [place] (1.001 - 1.035) >= 1.030 Urine Protein (NEG,<30 MG/DL) 100 H Urine Ketones (NEG) NEG Urine Nitrite (NEG) NEG Urine Bilirubin (NEG) NEG Urine Urobilinogen (0.1 - 1.0 EU/dl) 0.2 Ur Leukocyte Esterase (NEG) LARGE H Ur Microscopic SEDIMENT EXAMINED Urine RBC (0 - 5 /HPF) 15-25 H Urine WBC (0 - 2 /HPF) PACKD H Ur Epithelial Cells (NONE,FEW) FEW Urine Bacteria (NEG/NONE) MANY H Urine Mucus (FEW,NONE) RARE Urine Hemoglobin (NEG) MOD H Urine Glucose (N MG/DL) NEG 05/16 191 Chemistry Sodium (137 - 145 mmol/L) 142 Potassium (3.5 - 5.1 mmol/L) 4.1 Chloride (98 - 107 mmol/L) 103 Carbon Dioxide (22 - 30 mmol/L) 23 Anion Gap (5 - 16) 16 BUN (7 - 17 mg/dL) 11 Creatinine (0.5 - 1.0 mg/dL) 0.8 Estimated GFR (>60 ml/min) > 60 BUN/Creatinine Ratio (7 - 25 %) 13.8 Glucose (65 - 99 mg/dL) 128 H Lactic Acid (0.7 - 2.1 mmol/L) 4.3 H Calcium (8.4 - 10.2 mg/dL) 10.1 Total Bilirubin (0.2 - 1.3 mg/dL) 0.4 AST (14 - 36 U/L) 23 ALT (9 - 52 U/L) 28 Alkaline Phosphatase (<127 U/L) 80 Troponin I (< 0.11 ng/ml) < 0.01 Total Protein (6.3 - 8.2 g/dL) 7.4 Albumin (3.5 - 5.0 g/dL) 4.2 Globulin (1.9 - 4.2 gm/dL) 3.2 Albumin/Globulin Ratio (1.1 - 2.2 %) 1.3 Coagulation PT (9.4 - 12.5 SEC) 11.6 INR (0.90 - 1.19) 1.11 APTT (25 - 37 SEC) 29 Hematology CBC w Diff NO MAN DIFF REQ WBC (4.8 - 10.8 /CUMM) 11.7 H RBC (4.20 - 5.40 /CUMM) 4.54 Hgb (12.0 - 16.0 G/DL) 13.7 Hct (37 - 47 %) 41.9 MCV (81.0 - 99.0 FL) 92.1 MCH (27.0 - 31.0 PG) 30.1 RDW (11.5 - 14.5 %) 13.5 Plt Count (130 - 400 /CUMM) 372 MPV (7.4 - 10.4 FL) 8.6 Gran % (42.2 - 75.2 %) 64.6 Lymphocytes % (20.5 - 51.1 %) 25.7 Monocytes % (1.7 - 9.3 %) 7.4 Eosinophils % (0 - 5 %) 1.9 Basophils % (0.0 - 2.0 %) 0.4 Absolute Granulocytes (1.4 - 6.5 /CUMM) 7.5 H Absolute Lymphocytes (1.2 - 3.4 /CUMM) 3.0 Absolute Monocytes (0.10 - 0.60 /CUMM) 0.9 H Absolute Eosinophils (0.0 - 0.7 /CUMM) 0.2 Absolute Basophils (0.0 - 0.2 /CUMM) 0 PUBS MCHC (33.0 - 37.0 G/DL) 32.7 L Imaging/Other Studies: IMPRESSION: 1. There are no acute bleeds or territorial infarcts. 2. There are changes consistent with mild diffuse volume loss and there are sequelae of chronic microvascular ischemic disease. A small infarct cannot be excluded on the basis of this study. Assessment/Plan Assessment: Mental status change, currently obtunded Etiology for change in status not determined Recommendations: Family currently deciding on status of care If not a hospice candidate due to advancing Alzheimer disease, would then search for etiology Tests to consider include EEG to rule out nonconvulsive status, blood tests to assess for septicemia, blood test for thyroid function tests and cortisol levels Consult Acknowledgment - Thank you for your consult request.
--- NOTE | 2017-05-17 14:35 | Discharge Summary ---
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 At the time of admission, vitals-temperature 97.6, pulse rate 107, respiration 18, blood pressure 131/87, pulse ox 94% on room air. Lab findings indicated WBC 11.7, hemoglobin 13.7, platelets 372, electrolytes- sodium 142, potassium 4.1, bicarbonate 23, renal function-BUN 11, serum creatinine 0.8, lactic acid 4.3--> 1.3, hepatic panel-AST 23, ALT 28, alkaline phosphatase 80, cardiac enzymes-troponin within normal limits. Urinalysis revealed increased protein, with leukocyte esterase positive, pyuria. CT head revealed-no acute bleeds or territorial infarcts. There are changes consistent with mild diffuse volume loss and sequelae of chronic microvascular ischemic disease. There could be a small infarct could not be ruled out as per the radiologist. Chest x-ray did not reveal any acute intrathoracic process, however revealed low lung volumes. New onset seizures 71-year-old female with past medical history significant for Alzheimer's dementia, nonverbal at baseline, recent CVA and left-sided weakness, hypertension was sent from [facility] for sudden change in mental status. Patient had seizure-like activity, confusion after the episode, urine incontinence. Difficult patient to examine, stiffness of extremities, residual left-sided weakness. Off note history of stroke 2 months ago at long term for which she never hospitalized. CT scan revealed no acute infarcts or bleeds. She is comfort care at long term facility. She was admitted to general medicine floor for further management and hospice evaluation. Monitored vitals every shift. Neurology was consulted from the emergency room who recommended starting IV Keppra for seizure prophylaxis. She was continued on IV Keppra for a day. She was maintained on fall precautions and seizure precautions. Received gentle hydration and respiratory care. Urinary tract infection Patient is nonverbal at baseline. However urine analysis showed large leukocyte esterases, WBC, RBC, many bacteria. Urine cultures were sent. Patient was started on IV antibiotics. Received IV ceftriaxone for a day Comfort care According to the long term facility, family -patient is comfort care because of her clinical condition. Family meeting was held at around 1:30 PM 05/17/[address] Peacock, Dr. paul, Dr. motley. Family opted for hospice evaluation. She was made hospice on 05/17/2017 at 3:30 PM. We discontinued all the medications. Started her on hospice medications Complications: none Allergies: Coded Allergies: NO KNOWN ALLERGIES (11/12/11) Significant Procedures: none Pertinent Lab Results: CXR FINDINGS: The cardiomediastinal silhouette is unremarkable. Lung volumes are diminished. The lungs and pleural spaces appear clear without evidence of congestion, consolidation, or significant appearing effusion or atelectasis. There is no evidence of pneumothorax or pulmonary edema. Included osseous structures demonstrate a suture stay in the right humeral head suggesting previous rotator cuff repair. IMPRESSION: Low lung volumes, no evidence of an acute intrathoracic process. HEAD CT FINDINGS: There is no evidence of acute intracranial hemorrhage or territorial infarction. No abnormal mass effect or midline shift is seen. Mcgovern to white matter differentiation is well preserved. No extra-axial fluid collections are identified. The ventricles and sulci are slightly commensurately prominent consistent with mild diffuse volume loss. This appears similar compared to the prior study. There are patchy areas of low attenuation in the periventricular and subcortical white matter, consistent with sequelae of chronic microvascular ischemic disease. The osseous structures and soft tissues are normal. The mastoid air cells and visualized portions of the paranasal sinuses are well aerated. IMPRESSION: 1. There are no acute bleeds or territorial infarcts. 2. There are changes consistent with mild diffuse volume loss and there are sequelae of chronic microvascular ischemic disease. A small infarct cannot be excluded on the basis of this study. Disposition Summary Disposition Principal Diagnosis: altered Mental status seizures Urinary tract infection Additional Diagnosis: alzeihmers dementia, nonverbal baseline Discharge Disposition: hospice - medical facilit Discharge Instructions General Discharge Information Code Status: Hospice Patient's Diet: As tolerated Patient's Activity: n/a Follow-Up Instructions/Appts: n/a hospice now Copies To: Ebenezer ANDRES MD Attending MD Review Statement Documenting Attending: RHIANNON PEACOCK MD Other Findings: The patient was seen and discussed with house staff and family. Agree with the plan of care as outlined.
== END 2017-05-17 14:18 | disposition hospice, home (50) | DRG 101 ==
LOC: ERH 18:21 → 2NA 20:51 → ERHI 20:51 → EDBEDREQ 22:14 → ENRESERV 22:22 → ENTRNSPT 22:41 → 2NA 23:02 → EDTRNSPT 05-17 07:03 → CMPTRNSPT 05-17 07:04 → 2NA 05-17 07:38
PROVIDERS: Emergency Medicine; ADMIT Internal Medicine
DX: R56.9 Unspecified convulsions (principal); I69.354 Hemiplegia and hemiparesis following cerebral infarction affecting left non-dominant side; G30.9 Alzheimer's disease, unspecified; F02.80 Dementia in other diseases classified elsewhere, unspecified severity, without behavioral disturbance, psychotic disturbance, mood disturbance, and anxiety; N39.0 Urinary tract infection, site not specified; I10 Essential (primary) hypertension; Z51.5 Encounter for palliative care; R32 Unspecified urinary incontinence
CPT/HCPCS: 2NASP; 81001; 87040; 87086; 93005; 93010; 96374; J0696; J1953; J7040

== ENCOUNTER 2017-05-17 14:22 | Inpatient (IN) | payer OTHER ==
[~2017-05-17 14:22] MED LIST changes: +8 HOUR650 MG PO; +ACEPHEN650 M1 PR; +ARTIFICIAL TEAR15 M8 OU; +ATROPINE SULFATE2 ML SL; +CLARITIN10 M1 PO; +DULCOLAX10 M1 RC; +FLEET ENEMA133 ML RC; +LORAZEPAM I2 MG/1 ML SL; +MORPHINE S100 MG/5 M PO; +PROSIGHT TABLE1 EACH PO; +SALINE MIST44 ML NAS; +TRAMADOL HCL50 M1 PO
--- NOTE | 2017-05-17 15:46 | NUR ---
ADMISSION NOTE PT MINIMALLY RESPONSIVE TO TACTILE STIMULI, NONVERBAL (BASELINE), EYES REMAIN CLOSED. RESTING COMFORTABLY IN BED, RR 18 AND NONLABORED. #20 IV IN RIGHT WRIST FROM 05/16. INCONTINENT OF URINE AND STOOL. ON SIZEWISE MATTRESS. SKIN IS WARM, DRY, INTACT. FAMILY AT BEDSIDE, EMOTIONAL SUPPORT GIVEN. SAFETY MAINTAINED, NEEDS IN REACH.
--- NOTE | 2017-05-17 16:08 | History & Physical ---
General Information and HPI Chief Complaint: Decreased responsiveness, status post CVA & seizures. Source of Information: family, old records Exam Limitations: unable to give history, clinical condition Associated Symptoms: Decreased responsiveness. History of Present Illness: The patient is a 71 yo female with h/o Alzheimer's Disease, status post prior recent CVA with residual left sided weakness who was residing at [facility] and was noted to have abnormal movements c/w seizure activity with leaning to the right side. She has chronic urinary incontinence. Her breathing was noted to be shallow and she had decreased responsiveness. She has h/o CVA and multiple TIA's in past. In the ED she had a CT that showed no acute bleed or pathology. She received IV Keppra and Ativan. Remained essentially unresponsive. Also found to have some WBC in urine and empirically begun on Ceftriaxone. No fever or chills. Family initially opted for Comfort measures given her lack of quality of life and other co-morbidities. After no improvement this morning family elected to place on Hospice service. Allergies/Medications Allergies: Coded Allergies: NO KNOWN ALLERGIES (11/12/11) Past History Medical History Neurological: Alzheimer's disease, dementia, TIA Cardiovascular: hypertension, HLD Respiratory: ALLERGIES Gastrointestinal: CHOLESTERAL Hepatic: NONE Renal: NONE Musculoskeletal: OSTEOARTHRITIS Psychiatric: NONE Endocrine: NONE Blood Disorders: NONE Cancer(s): NONE CAR SALESPERSON/Reproductive: NONE Other Medical Hx: SEASONAL ALLERGIES History of MRSA: No History of VRE: No History of CDIFF: No Isolation History: Standard Surgical History Surgical History: hysterectomy Past Family/Social History Functional Ability: Limited since CVA. Review of Systems Review of Systems: No dyspnea, pain. Review of Systems Constitutional: Reports: weakness. EENTM: Reports: ear redness (UNABLE TO GIVE HISTORY). Musculoskeletal: Reports: joint pain (PER FAMILY). Neurological/Psychological: Reports: dementia, pre-existing deficit, tremors. Hematologic/Endocrine: Denies: no symptoms. Immunologic/Allergic: Denies: no symptoms. Post Menopausal: Yes Exam & Diagnostic Data Last 24 Hrs of Vital Signs/I&O See prior admit before transfer to Hospice. Physical Exam General Appearance Alert (NON RESPONSIVE) Skin No Breakdown, No Significant Lesion HEENT Atraumatic (DRY MUCOUS MEMBRANES) Neck Supple, No JVD, +2 Carotid Pulse wo Bruit, No LAD Cardiovascular Regular Rate, Normal S1, Normal S2, No Murmurs Lungs Clear to Auscultation (DIMINISHED BREATH SND BASES) Abdomen Normal Bowel Sounds, Soft, No Tenderness Neurological Normal Gait (RIGHT SIDE JERKING) Extremities No Edema Vascular Pulses Symmetrical Assessment/Plan Assessment: Impression/Plan: #Decreased Responsiveness- s/p seizure activity at SNF. Has multiple co- morbidities including Alsheimer's Dementia, h/o CVA and TIA's. Family state quality of her life has not been good since CVA. Possible etiologies include recurrent CVA (not seen on CT), prolonged post ictal, UTI (does not appear septic). Plan: After discussion with family the wish to admit to Hospice care for comfort care. IV Morphine/Ativan and Scopolamine/Robinul per protocol. Family (daughter & [id number]) were involved with discussion. #S/P CVA - in past with residual weakness. Plan: No further treatment. #H/O Probable Seizure- did receive Keppra on admission. Plan: No further Keppra. Will use Ativan as per Hospice protocol. Plan: SEE ABOVE
[2017-05-18 06:54] VITALS: BP 80/50
--- NOTE | 2017-05-18 13:42 | PN- Hospice ---
Subjective Subjective: Family at bedside. Pt. has been recieving as needed morphine approximately every 3-5 hours, scheduled ativan also. No seizures noted. Unresponsive at present. Review of Systems Constitutional: Reports: see HPI. Objective Last 24 Hrs of Vital Signs/I&O Vital Signs Date Time Temp Pulse Resp B/P B/P Pulse O2 O2 Flow FiO2 Mean Ox Delivery Rate 05/18 0654 99.2 109 20 80/50 82 Room Air Intake & Output 05/18 1600 05/18 0800 05/18 0000 Intake Total 0 0 Output Total 200 100 150 Balance -200 -100 -150 Intake, Oral 0 0 Output, Urine 200 100 150 Physical Exam General Appearance: mild distress, dyspneic Head: atraumatic Ears, Nose, Throat: dry mucous membranes Respiratory: dyspneic, no secretions Cardiovascular: tachycardia Abdomen: soft, non-tender Extremities: mottling to soles of feet Current Medications: Current Medications Sig/Gilberto Start time Last Medication Dose Route Stop Time Status Admin Acetaminophen 650 MG Q4P PRN 05/17 1615 AC NJ Artificial Tears 2 GTT Q2P PRN 05/17 1615 AC OU Glycerin 2 SPRAY Q4P PRN 05/17 1615 AC PO Glycerin/Mineral Oil 1 ROULA Q8P PRN 05/17 1615 AC TOP Glycopyrrolate 400 MCG Q4P PRN 05/17 1615 AC SC Lorazepam 1 MG Q4 05/17 1800 AC 05/18 IV 1026 Morphine Sulfate 2 MG Q2P PRN 05/17 1615 AC 05/18 IV 1249 Scopolamine HBr 1 PAT Q72H 05/17 1700 AC TOP Assessment/Plan Assessment/Recommendations: The patient is a 71 yo female with h/o Alzheimer's Disease, with new-onset seizures and UTI, admitted to hospice care. Pt is dyspneic and tachycardic, utilizing morphine every 3-5 hrs. Will schedule morphine every 3 hours and change as needed to every 1 hour. Continue to monitor for increasing dose +/or frequency. Will add ativan as needed for anxiety or seizures life and other co-morbidities. After no improvement this morning family elected to place on Hospice service.
--- NOTE | 2017-05-18 23:54 | NUR ---
LATE ENTRY THIS RN ARRIVED ON UNIT AT 1900. AFTER BEDSIDE REPORT, THIS RN WENT TO ROUND ON PATIENT AND FOUND PATIENT TO HAVE A RR OF 24, WITH LABORED BREATHING. AT THIS TIME PATIENT HAD JUST BEEN STARTED ON MORPHINE GTT. PATIENT WAS GIVEN 1 MG MORPHINE BOLUS PER TITRATION PROTOCOL AT 1951. FAMILY AT BEDSIDE AT THIS TIME. PATIENT WAS TURNED AND REPOSITIONED TO LEFT SIDE. AT APPROX 2009, PATIENT'S BREATHING WAS LESS LABORED BUT PATIENT CONTINUED TO HAVE AN INCREASED RESPIRATORY RATE OF 24. A SECOND MORPHINE BOLUS OF 1 MG WAS ADMINISTERED PER TITRATION PROTOCOL. AT APPROX 2029, PATIENT'S RESP RATE WAS 22, SLIGHTLY LABORED. PATIENT WAS GIVEN A 3RD DOSE AT THIS TIME OF MORPHINE 1MG. PER TITRATION PROTOCOL, THE MORPHINE GTT WAS INCREASED TO 2MG/HR. CO-SIGNED BY SECOND RN. AT APPROX 2099, PATIENT HAD RR OF 20, NON-LABORED. APPEARED COMFORTABLE WITH EYES CLOSED. FAMILY REMAINS AT BEDSIDE. AT 213, PATIENT HAD BEGUN LABORED BREATHING AGAIN WITH A RR OF 22. A MORPHINE BOLUS WAS GIVEN ALONG WITH SCHEDULED ATIVAN AND PRN RUBINOL FOR INCREASED SECRETIONS. AT 2200 PATIENT APPEARED COMFORTABLE WITH A RR OF 20, NON-LABORED. PATIENT WAS REPOSITIONED SLIGHTLY, PER FAMILY REQUEST. AT APPROX 2234, PATIENT'S FAMILY ALERTED THIS RN THAT PATIENT HAD STOPPED BREATHING. UPON ASSESSMENT OF PATIENT, PATIENT WAS UNRESPONSIVE, RR WAS ZERO FOR ONE FULL MINUTE. NO AUDIBLE APICAL HEART RATE WAS HEARD. NO RADIAL OR JUGULAR PULSE WAS FELT AT THIS TIME. PATIENT'S EYES WERE FIXED AND NON-REACTIVE TO LIGHT. FAMILY AT BEDSIDE. SENIOR DATA DEVELOPER ROSALIA AT BEDSIDE TO CONFIRM . TIME OF PROCLAIMED AT 223. ALL APPROPRIATE PERSONNEL NOTIFIED.
--- NOTE | 2017-05-21 11:38 | Discharge Summary ---
Visit Information Visit Dates Admission Date: 05/17/17 Discharge Date: 05/19/17 Hospital Course Course Attending Physician: RHIANNON MALLOY MD Primary Care Physician: Ebenezer ANDRES MD Hospital Course: The patient is a 71 year-old female with h/o Alzheimer's Disease, with new-onset seizures and UTI, admitted to hospice care. She was kept comfortable on a morphine drip for dyspnea/labored respirations and with scheduled ativan for anxiety and seizures until she peacefully. Allergies: Coded Allergies: NO KNOWN ALLERGIES (11/12/11) Disposition Summary Disposition Principal Diagnosis: New onset seizures Urinary tract infection Alzheimer's disease Additional Diagnosis: Cerebrovascular disease Discharge Disposition: Discharge Instructions General Discharge Information Code Status: Hospice Patient's Diet: N/A Patient's Activity: N/A Follow-Up Instructions/Appts: N/A Copies To: Ebenezer ANDRES MD
== END 2017-05-19 00:56 | disposition expired | DRG 101 ==
LOC: 2NA 14:22
PROVIDERS: ADMIT Internal Medicine
DX: G40.909 Epilepsy, unspecified, not intractable, without status epilepticus (principal); I69.354 Hemiplegia and hemiparesis following cerebral infarction affecting left non-dominant side; G30.9 Alzheimer's disease, unspecified; F02.80 Dementia in other diseases classified elsewhere, unspecified severity, without behavioral disturbance, psychotic disturbance, mood disturbance, and anxiety; N39.0 Urinary tract infection, site not specified; Z51.5 Encounter for palliative care; Z66 Do not resuscitate; R32 Unspecified urinary incontinence; I10 Essential (primary) hypertension; E78.5 Hyperlipidemia, unspecified; M19.90 Unspecified osteoarthritis, unspecified site; J30.2 Other seasonal allergic rhinitis
CPT/HCPCS: J2270